=== PATIENT | female | born 1980 | race Caucasian/White ===

== ENCOUNTER 2021-09-04 07:25 | Emergency (ER) | payer OTHER, SELFPAY ==
[2021-09-04 07:28] VITALS: BP 124/78; PULSE 78; RESP 19; O2SAT 98
[2021-09-04 07:35] VITALS: TEMP 36.4
--- NOTE | 2021-09-04 08:03 | ED.DENTAL ---
HPI - Dental/Oral General Chief complaint: Dental/Oral Stated complaint: tooth infection Time Seen by Provider: 09/04/21 08:03 Source: patient History of Present Illness HPI Narrative: Right lower gum dental pain for over 1 year, got worse over the last 6 months. Patient was seen by a dentist over 2 years ago. Patient denies any fever, chills, headache, nausea, vomiting. Related Data Allergies Allergy/AdvReac Type Severity Reaction Status Date / Time codeine Allergy Unknown Verified 04/10/12 14:19 tramadol Allergy Unknown Verified 12/15/14 10:59 Review of Systems Review of Systems: CONSTITUTIONAL: Denies fever, chills, or sweats. EYES: Denies visual changes, redness, or discharge. ENT: Denies rhinorrhea, congestion, sore throat, or otalgia. CARDIOVASCULAR: Denies chest pain, palpitations, or edema. RESPIRATORY: Denies cough or dyspnea. GASTROINTESTINAL: Denies abdominal pain, nausea, vomiting, or diarrhea. GENITOURINARY: Denies dysuria or hematuria. SKIN: Denies rash or itching. MUSCULOSKELETAL: Denies back pain, joint pain, or myalgia. NEUROLOGIC: Denies headache, numbness, or weakness. PSYCHIATRIC: Denies anxiety or depression. [facility] Family History Family History Other Diabetes mellitus Social History Social History Smoking status: Smoker, status unknown Second hand tobacco smoke exposure: Yes Smoking end date: 09/25/04 Alcohol intake: never Exam Narrative: General appearance: Well-developed, well-nourished Skin: Normal color Head: Normocephalic, nontraumatic Eyes: Clear conjunctiva ENT: Oropharynx normal, ears normal, nose normal Neck: Supple, nontender Chest and respiratory: Airway patent, no respiratory distress, no accessory muscle use Heart: Regular rate/rhythm Abdomen: Soft, nontender, no organomegaly, quiet bowel sounds Vascular: Normal peripheral pulses, normal capillary refill. Musculoskeletal: Normal range of motion, nontender back Neurologic: Alert and oriented ?3, SERVICE ARCHITECT is normal as tested, no gross motor deficit Course Course Emergency Course: Stable Vital Signs Vital signs: Vital Signs Pulse Rate 78 09/04/21 07:28 Respiratory Rate 19 09/04/21 07:28 Blood Pressure 124/78 09/04/21 07:28 Pulse Oximetry 98 09/04/21 07:28 Temperature 36.4 C 09/04/21 07:35 Pulse Rate 78 09/04/21 07:28 Respiratory Rate 19 09/04/21 07:28 Blood Pressure 124/78 09/04/21 07:28 Pulse Oximetry 98 09/04/21 07:28 MDM - Dental/Oral MDM Narrative Medical decision making narrative: Dental infection/caries Critical Care Time Critical Care Time Critical Care Time: No Discharge Plan Discharge Clinical Impression: Dental caries Patient Disposition: Home, Self-Care Condition: Stable Instructions: Antibiotic Form, Toothache (ED) Additional Instructions: Return if symptoms are worsening , call a dentist for appointment, take Tylenol as as needed for aches and pain, continue home medications. Prescriptions: New penicillin V potassium 500 mg tablet 500 mg PO Q6H Qty: 40 RF: 0 ibuprofen 800 mg tablet 800 mg PO TID PRN (Reason: pain) Qty: 20 RF: 0 Follow-up/Referrals: PHYSICIAN,TALENT PROGRAM MANAGER [Primary Care Provider] - Genaro Cid DMD [Physician] - 09/07/21 Stand Alone Forms: Work/School Release IP
== END 2021-09-04 08:25 | disposition home or self-care (01) ==
PROVIDERS: Emergency Provider Emergency Medicine
DX: K02.9 Dental caries, unspecified (principal)
CPT/HCPCS: 99283

== ENCOUNTER 2022-05-10 00:24 | Emergency (ER) | payer OTHER, SELFPAY ==
--- NOTE | ~2022-05-10 | XR_ITS ---
EXAMINATION: XR knee LT 3V DATE: 05/10/2022 01:15 INDICATION: Anterior left knee pain post fall TECHNIQUE: Anteroposterior, oblique and crosstable lateral views of the left knee were obtained COMPARISON: 06/27/2013 FINDINGS: Alignment is normal. No fracture. Joint spaces appear normal on nonweightbearing imaging. Small left knee joint effusion at the suprapatellar pouch without layering lipohemarthrosis. Small enthesophyte at the proximal pole of the patella. IMPRESSION: 1. Small left knee joint effusion. No acute osseous abnormality. Reviewed, dictated and finalized at location A.
[2022-05-10 00:27] VITALS: BP 128/69; PULSE 87; RESP 18; TEMP 37.1; O2SAT 100
--- NOTE | 2022-05-10 00:52 | ED.LOWEXIN ---
HPI - Extremity Injury (Lower) General Chief Complaint: Extremity Injury, Lower Stated Complaint: Knee pain Time Seen by Provider: 05/10/22 00:39 History of Present Illness HPI Narrative: 42-year-old female presents emergency room secondary to pain to her left knee. States she was out with her dogs and another dog was in the neighborhood. Her dog ran towards her and struck her directly in the left knee. She states she felt like her knee bent backwards somewhat. She is able to hobble on it but not able to put all of her weight on it. This happened just prior to presenting to the emergency room. Denies any prior knee injuries. She not take anything for pain prior to coming to emergency room. Related Data Home Medications Medication Instructions Recorded Confirmed citalopram 40 mg tablet mg 05/10/22 levothyroxine 50 mcg tablet mcg 05/10/22 05/10/22 Allergies Allergy/AdvReac Type Severity Reaction Status Date / Time codeine Allergy Unknown Rash Verified 05/10/22 00:27 tramadol Allergy Unknown Unknown Verified 05/10/22 00:27 Review of Systems Review of Systems: CONSTITUTIONAL: Denies fever, chills, or sweats. EYES: Denies visual changes, redness, or discharge. ENT: Denies rhinorrhea, congestion, sore throat, or otalgia. CARDIOVASCULAR: Denies chest pain, palpitations, or edema. RESPIRATORY: Denies cough or dyspnea. GASTROINTESTINAL: Denies abdominal pain, nausea, vomiting, or diarrhea. GENITOURINARY: Denies dysuria or hematuria. SKIN: Denies rash or itching. MUSCULOSKELETAL: Pain in the left knee as noted. No history of any back pain. NEUROLOGIC: Denies headache, numbness, or weakness. PSYCHIATRIC: Denies anxiety or depression. [facility] Family History Family History Other Diabetes mellitus Social History Social History Smoking status: Smoker, status unknown Second hand tobacco smoke exposure: Yes Smoking end date: 09/25/04 Alcohol intake: never Exam Narrative: APPEARANCE: Well appearing, no pain or distress, well-nourished. Head Normocephalic and atraumatic. EYES: PERRLA/EOMI, conjunctivae clear. NOSE: Normal with no drainage EARS:TMS clear with Babin, with good light reflex. THROAT: Pharynx clear, no exudate. NECK: Supple. No adenopathy, no masses. RESPIRATORY: Airway patent, respirations nonlabored. Clear to auscultation bilaterally, no rales, rhonchi, wheezing. CARDIOVASCULAR: Regular rate and rhythm without murmurs, rubs, or gallops. ABDOMINAL: Soft, nontender, nondistended, no hepatosplenomegaly Musculoskeletal: Moves all extremities. Strength/ROM intact, No edema, No calf tenderness. Some tenderness to palpation to the left knee. No effusion. No bony abnormalities. NEURO: Alert. Cranial nerves II through XII intact. Normal gait. Good coordination. Nonfocal examination. SKIN:: Warm, dry. Normal Color PSYCHIATRIC: Normal affect/mood, normal interaction Course Vital Signs Vital signs: Vital Signs Temperature 98.7 F 05/10/22 00:27 Pulse Rate 87 05/10/22 00:27 Respiratory Rate 18 05/10/22 00:27 Blood Pressure 128/69 05/10/22 00:27 Pulse Oximetry 100 05/10/22 00:27 Oxygen Delivery Room Air 05/10/22 00:27 Temperature 98.7 F 05/10/22 00:27 Pulse Rate 87 05/10/22 00:27 Respiratory Rate 18 05/10/22 00:27 Blood Pressure 128/69 05/10/22 00:27 Pulse Oximetry 100 05/10/22 00:27 Oxygen Delivery Room Air 05/10/22 00:27 MDM - Extremity Injury (Lower) MDM Narrative Medical decision making narrative: X-rays interpreted by me shows no acute bony pathology. This was relayed with the patient. With fitted with a left knee immobilizer and crutches. Put her on some nonsteroidal anti-inflammatory get her the name of the orthopedic surgeon to follow-up if needed. Imaging Data My impression: No bony abnormalities. Discharge Plan Discharge Clinical I
[2022-05-10] MEDS: NAPROXEN 500 MG TABLET PO (00:55)
== END 2022-05-10 01:59 | disposition home or self-care (01) ==
PROVIDERS: Emergency Provider Emergency Medicine
DX: M23.92 Unspecified internal derangement of left knee (principal); S89.92XA Unspecified injury of left lower leg, initial encounter; Z87.891 Personal history of nicotine dependence; W54.1XXA Struck by dog, initial encounter
CPT/HCPCS: 73562; 99283; A9270

== ENCOUNTER 2023-12-25 23:13 | Emergency (ER) | payer OTHER, SELFPAY ==
[2023-12-25 23:28] VITALS: BP 123/58; PULSE 75; RESP 18; TEMP 36.6; O2SAT 99
[2023-12-26 00:30] LABS: Influenza A QL RT-PCR Negative (Negative); Influenza B QL RT-PCR Negative (Negative); RSV RNA, RT-PCR Negative (Negative); SARS-CoV-2 RNA PCR Negative (Negative)
[2023-12-26 00:33] VITALS: O2SAT 97
--- NOTE | 2023-12-26 01:06 | ED.GENADULT ---
HPI - General Adult General Chief complaint: Upper Respiratory Infection Stated complaint: cough, fatigue Time Seen by Provider: 12/26/23 00:11 Source: patient Mode of arrival: ambulatory Limitations: no limitations History of Present Illness HPI narrative: This is a 43 year old female who presents to the ED with chief complaint of cough, congestion and generalized fatigue. Reports that she has had primarily dry cough sometimes is productive with clear sputum. States that she feels like she has a lot of post nasal drainage. Denies chest pain, chest tightness, fevers, chills, abdominal pain, nausea, vomiting. No known sick contacts but worse around a lot of people on a daily basis. Active smoker Related Data Home Medications Medication Instructions Recorded Confirmed citalopram 40 mg tablet mg 05/10/22 05/19/22 levothyroxine 50 mcg tablet mcg 05/10/22 05/19/22 buprenorphine 2 mg-naloxone 0.5 mg 1 film buccal DAILY 05/19/22 05/19/22 sublingual film (Suboxone) mirtazapine 15 mg tablet (Remeron) 15 mg PO DAILY 05/19/22 05/19/22 Allergies Allergy/AdvReac Type Severity Reaction Status Date / Time codeine Allergy Unknown Rash Verified 06/29/22 10:51 tramadol Allergy Unknown Unknown Verified 06/29/22 10:51 Review of Systems Review of Systems: All systems as dictated in [facility] Past Medical History Medical History Contusion of left knee Left knee pain Strain of left knee Thyroid disorder Family History Family History Other Cancer Diabetes mellitus Hypertension Depression Grandparent Cancer Hypertension Thyroid disorder Mother Hypertension Depression Father Hypertension Social History Social History Smoking status: Current every day smoker Second hand tobacco smoke exposure: Yes Smoking end date: 09/25/04 Alcohol intake: never Substance use: never Living arrangements: with family Occupation/Education: occupation 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 HEAD: Normocephalic, atraumatic. EYES: PERRLA and EOMI. ENT: Nares clear, no rhinorrhea or epistaxis. Mucous membranes moist. Oropharynx without tonsillar hypertrophy exudate or other lesions. NECK: Supple. No adenopathy or masses. CHEST: No respiratory distress. Clear to auscultation. No wheezes rales or rhonchi HEART: Regular rate and rhythm. No murmur heard. Normal peripheral pulses. ABDOMEN: Soft, nontender, nondistended, normal active bowel sounds. MSK: Normal range of motion. No edema. SKIN: Warm, dry, no rash. NEURO: Alert and oriented x3. No focal deficits. PSYCH: Normal mood and affect. Course Vital Signs Vital signs: Vital Signs Temperature 97.9 F 12/25/23 23:28 Pulse Rate 75 12/25/23 23:28 Respiratory Rate 18 12/25/23 23:28 Blood Pressure 123/58 L 12/25/23 23:28 Pulse Oximetry 99 12/25/23 23:28 Oxygen Delivery Room Air 12/25/23 23:28 Temperature 97.9 F 12/25/23 23:28 Pulse Rate 70 12/26/23 01:23 Respiratory Rate 17 12/26/23 01:23 Blood Pressure 119/59 L 12/26/23 01:23 Pulse Oximetry 99 12/26/23 01:23 Oxygen Delivery Room Air 12/26/23 00:33 Medical Decision Making [facility] Narrative Medical decision making narrative: This is a 43-year-old female who presents to the ED with chief complaint URI symptoms for the past couple of days. Vitals are normal. Exam is benign. Viral swabs are negative. 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 Offered further workup but patient is declining. She feels comfortable going home with PCP follow-up. Pt will be discharged in stable condition. Return precautions given and supportive measures discussed. Pt is underst
[2023-12-26 01:23] VITALS: BP 119/59; PULSE 70; RESP 17; O2SAT 99
== END 2023-12-26 01:24 | disposition home or self-care (01) ==
PROVIDERS: Emergency Medicine; Emergency Provider Physician Assistant
DX: B34.9 Viral infection, unspecified (principal); Z20.822 Contact with and (suspected) exposure to COVID-19; E07.9 Disorder of thyroid, unspecified; Z87.891 Personal history of nicotine dependence
CPT/HCPCS: 87637; 99283